=== PATIENT | female | born 1970 | race Caucasian/White ===

== ENCOUNTER → 2022-11-27 09:51 | Outpatient (BNVA) | payer OTHER, SELFPAY | PROVIDERS: PCP Nurse Practitioner Adult Health; Visit Provider Orthopaedic Surgery | DX: Z13.89 Encounter for screening for other disorder (principal) | CPT/HCPCS: J1100 ==

== ENCOUNTER → 2023-02-26 08:36 | Outpatient (BNVA) | payer OTHER, SELFPAY | PROVIDERS: PCP Nurse Practitioner Adult Health; Visit Provider Orthopaedic Surgery ==

== ENCOUNTER 2023-10-09 10:46 | Outpatient (AMB) | payer OTHER, SELFPAY ==
--- NOTE | 2023-10-09 10:57 | A.OFFVIS_ITS ---
Intake Intake Visit Reasons: New Prob - Right Elbow Intake Note: Radha is a 53 year old right hand dominant female who presents today for a new problem visit with complaints of right elbow pain. She has had ongoing right elbow pain for a few months now. She explains that her pain is felt at the tip of the elbow and has soreness of the forearm. She notes increased pain with brushing teeth and lifting. History of elbow tendonitis wiht cortisone injections but feel that this is different Allergies penicillin G Allergy (Mild, Verified 11/27/22 10:18) Unknown prednisone Allergy (Mild, Verified 11/27/22 10:18) tongue swells Sulfa (Sulfonamide Antibiotics) Allergy (Mild, Verified 11/27/22 10:18) Hives Medication List - Last Reconciled 10/09/23 by Shira Abdi PA-C albuterol sulfate 90 mcg/actuation (Ventolin HFA) 2 puffs inhalation Q6H PRN albuterol sulfate mg inhalation Q4H PRN beclomethasone dipropionate 80 mcg/actuation (QNASL) 2 sprays intranasal DAILY bupropion HCl 300 mg PO DAILY celecoxib (Celebrex) 200 mg PO BID 30 days cetirizine 10 mg PO BID epinephrine IM fluticasone furoate-vilanterol 100-25 mcg/dose (Breo Ellipta) 1 ea inhalation DAILY fluticasone furoate-vilanterol 200-25 mcg/dose (Breo Ellipta) ea inhalation DAILY lorazepam 0.5 - 1 mg PO BEDTIME PRN spironolactone 50 mg PO BID spironolactone 25 mg PO BID HPI New Prob - Right Elbow HPI Details 53-year-old right hand dominant female joão dejesus presents to the office today for evaluation of right elbow pain for about 4 months. She states she has pain at the tip of her elbow which is aggravated with brushing her teeth, lifting, taking her dog to walk and with certain motions. She also c/o soreness in her forearm and experiences difficulty with grabbing objects. She finds no relief with ice. She was seen by Dr. Broussard on 02/26/23 for left CTS. 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 No erythema or swelling. ROM full without pain. Tenderness over the medial epicondyle and pain with resisted wrist supination. NVI. Assessment & Plan Assessment & Plan (1) Right elbow tendonitis: Code(s): M77.8 - Other enthesopathies, not elsewhere classified Plan We discussed options which include PT, NSAIDs and injections. The patient will defer on formal therapy and injection today so she was given a handout of home exercises in the office today. I also sent a prescription of Celebrex to her pharmacy. If symptoms persist, the patient will contact me for an injection, otherwise, PRN. Medications: New celecoxib (Celebrex) 200 mg PO BID 60 caps 3RF 30 days Patient Instructions: Scribed for Shira Abdi PA-C, by yTler Lara medical technologist hematology, on 10/09/2023 at 11:00 AM EST. IShira PA-C, have personally reviewed and agree with the information entered by the scribe. Coding Level of Care Code Est Pt Level 3 (01473) Diagnoses Right elbow tendonitis M77.8
== END 2023-10-09 12:17 | disposition home or self-care (01) ==
PROVIDERS: PCP Nurse Practitioner Adult Health; Visit Provider Physician Assistant
DX: M77.8 Other enthesopathies, not elsewhere classified (principal)
CPT/HCPCS: 99214

== ENCOUNTER → 2023-10-09 10:46 | Outpatient (BNVA) | payer OTHER, SELFPAY | PROVIDERS: PCP Nurse Practitioner Adult Health; Visit Provider Physician Assistant ==

== ENCOUNTER 2024-04-26 09:51 | Outpatient (AMB) | payer OTHER, SELFPAY ==
[2024-04-26 09:57] VITALS: BP 140/86; PULSE 86; BMI 38.5
--- NOTE | 2024-04-26 09:57 | MHC.OFFVIS ---
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 Validation Manager Required: No Accompanied by: Self / Same As Patient Allergies penicillin G Allergy (Mild, Verified 11/27/22 10:18) Unknown prednisone Allergy (Mild, Verified 11/27/22 10:18) tongue swells Sulfa (Sulfonamide Antibiotics) Allergy (Mild, Verified 11/27/22 10:18) Hives Medication List - Last Reconciled 04/26/24 by Jin Lopez MD albuterol sulfate 90 mcg/actuation (Ventolin HFA) 2 puffs inhalation Q6H PRN albuterol sulfate mg inhalation Q4H PRN bupropion HCl XL 150 mg PO DAILY cetirizine 10 mg PO BID epinephrine IM fluticasone furoate-vilanterol 100-25 mcg/dose (Breo Ellipta) 1 ea inhalation DAILY fluticasone furoate-vilanterol 200-25 mcg/dose (Breo Ellipta) ea inhalation DAILY lorazepam 0.5 - 1 mg PO BEDTIME PRN spironolactone 50 mg PO BID spironolactone 25 mg PO BID HPI Comments Details: Radha was referred here for precordial chest pain. She is a 54 year female with multiple musculoskeletal issues, asthma, hyperaldosteronism on spironolactone therapy, borderline hypertension, obesity. Patient also has history of anxiety disorder. Patient is about 5 years ago she had developed severe precordial/retrosternal chest tightness/pressure which happen mostly at rest associated diaphoresis shortness of breath. She did not seek emergency care at that point time. Subsequently she has been having intermittent episodes these episodes mostly under stressful situations. More recently she ended up going to a local emergency room but had a very long wait but was probably told everything was normal. She then went home without being completely evaluated at that point time. Subsequently over the weekend she had similar symptoms again. She comes for consultation today for these symptoms. She is concerned about cardiovascular issues given her risk factors and wants further evaluation. She denies any clear exertional chest discomfort. Does have exertional shortness of breath. No prolonged palpitation irregular heartbeat. No orthopnea, PND, leg edema. 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 Review of Systems Const Denies chills, Denies fatigue, Denies fever(s), Denies frequent falls, Reports weakness, Denies weight gain and Denies weight loss ENT Reports dizziness Card Reports chest pain, Reports diaphoresis, Denies leg edema, Denies lightheadedness, Denies palpitations, Reports dyspnea and Reports dyspnea on exertion Resp Denies cough, Reports dyspnea and Reports dyspnea on exertion GI Denies hematochezia Musc Denies abnormal gait, Denies muscle weakness, Denies numbness, Denies radiating pain into limb and Denies tingling Neuro Denies abnormal gait, Reports dizziness, Denies frequent falls, Denies numbness, Denies tingling and Reports weakness Endo Denies fatigue and Denies palpitations Physical Exam Vital Signs: Last Vital Signs Pulse 86 04/26/24 09:57 BP 140/86 H 04/26/24 09:57 BMI result Body Mass Index 38.5 Const General: cooperative, comfortable, no acute distress, alert, awake and Physically active Nutritional Appearance: obese Orientation/consciousness: patient oriented x3 Limitations: no limitations HEENT Head: Yes normocephalic and Yes atraumatic Neck Neck: Yes trachea midline, Yes supple and Yes no JVD Resp Effort & Inspection: normal respiratory effort Auscultation: clear to auscultation bilaterally Cardio Jugular venous distension: no JVD Palpation: normal PMI Rate: regular rate Rhythm: regular rhythm Heart sounds: S1 normal heart sound present, S2 normal heart sound present, no click, no gallops, no murmurs and no rubs GI Auscultation: normal bowel sounds Skin General skin exam: no rashes or lesions noted Neuro General: patient oriented x3 and no focal motor deficits Extrem General: Yes no clubbing, cyanosis or edema Office Procedures EKG Details: EKG shows normal sinus rhythm with low-voltage QRS otherwise normal EKG. [id number], Complete Assessment & Plan Assessment & Plan (1) Atypical chest pain: Code(s): R07.89 - Other chest pain Category: Medical Plan: Atypical chest pain syndrome in this middle-aged woman with history of hypertension/hyperaldosteronism with borderline lipids. At current point in time her symptoms are atypical for myocardial ischemia although this needs to be ruled out. Will suggest a stress test given her baseline normal EKG. If this is within normal limits, can consider further evaluation for coronary atherosclerosis with coronary calcium score. Also suggest echocardiogram to evaluate for LV systolic and diastolic function to evaluate for hypertensive heart disease LVH that may explain her chest pain syndrome as well. If these are within normal limits consider evaluation from GI perspective. Continue aggressive blood pressure control which on today's exam appears to be elevated. Advised to monitor blood pressure at home maintain a log. May need uptitration of her spironolactone therapy and/or addition of an alternative antihypertensive agent. Further treatment of lipids based on the finding of coronary calcium score. She is encouraged to increase activity level and participate in weight loss program. This is a evaluation for sleep apnea. She is scheduled for colonoscopy in near future, if the cardiac testing is within normal limits, can pursue with colonoscopy with low risk for perioperative cardiovascular morbidity mortality. Will follow up in the clinic if need be. Thank you for allowing me to partake in his care. Orders: Orders CA stress test 04/27/24 R07.89 - Other chest pain Coding Level of Care Code New Pt Level 4 (42232) Diagnoses Atypical chest pain R07.89 CPT Codes EKG - CPT: 61769-[id number], Complete ([id number])
== END 2024-04-26 10:33 | disposition home or self-care (01) ==
PROVIDERS: PCP Nurse Practitioner Adult Health; Visit Provider Internal Medicine Cardiovascular Disease
DX: R07.89 Other chest pain (principal)
CPT/HCPCS: 93010; 93306; 99204

== ENCOUNTER → 2024-04-26 09:51 | Outpatient (BNVA) | payer OTHER, SELFPAY | PROVIDERS: PCP Nurse Practitioner Adult Health; Visit Provider Internal Medicine Cardiovascular Disease | DX: R07.89 Other chest pain (principal); I10 Essential (primary) hypertension; E26.9 Hyperaldosteronism, unspecified | CPT/HCPCS: 93005 ==

== ENCOUNTER → 2024-04-26 12:44 | Outpatient (REF) | payer OTHER, SELFPAY ==
--- NOTE | 2024-04-26 12:50 | CA_ITS ---
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 The calculated ejection fraction is 62% by biplane method. - No obvious valvular pathology seen on this study. Findings Procedure Information Contrast agent, definity, is being given per protocol without apparent complications. Left Ventricle Normal left ventricular cavity size. There is normal left ventricular wall thickness. The left ventricular systolic function is normal. The calculated ejection fraction is 62% by biplane method. There is no evidence of regional wall motion abnormalities. Diastolic function is normal for age. Right Ventricle Normal right ventricular cavity size and systolic function. Atria Both atria are normal in size. Aortic Valve There is a normal trileaflet aortic valve. There is no aortic valve stenosis. There is no aortic valve regurgitation. Mitral Valve The mitral valve appears normal. There is no mitral valve regurgitation. There is no mitral valve stenosis. Pulmonic Valve There is trace pulmonic valve regurgitation. Tricuspid Valve Normal tricuspid valve structure. There is no tricuspid valve regurgitation. Tricuspid regurgitation envelope is inadequate for calculation of right ventricular systolic pressure. Great Vessels The asc aorta is normal in size. Venous The inferior vena cava is normal in size and collapses greater than 50% with inspiration. Pericardium/Pleural There is no evidence of pericardial effusion. Prior Study Comparison No prior study available for comparison. Recommendations, Care & Conclusions No obvious valvular pathology seen on this study. Measurements 2D Linear Measurements IVSd: 1.00 0.6-0.9/0.6-1.0 cm LVIDd: 4.90 3.9-5.3/4.2-5.9 cm LVIDd Index: 2.44 2.4-3.2/2.2-3.1 cm/m2 LVIDs: 3.49 2.0-3.6 cm LVPWd: 0.92 0.7-1.1 cm LA Diam: 3.80 2.7-3.8/3.0-4.0 cm LAIDs Index: 1.89 1.5-2.3 cm/m2 LV Mass: 206.97 67-162/88-224 g LV Mass Index: 102.97 43-95/49-115 g/m2 LVOT Diam: 2.30 3.0+(-)1.3 cm 2D Systolic Function EF 4C: 69.30 >55% EF 2C: 53.70 >55% EF BiP: 61.60 >55% Mitral Valve MV Pk E: 0.77 MV PK A: 0.66 MV Decel Time: 188.00 E/A: 1.20 E'Lateral: 7.83 E'Medial: 7.29 E/E' Med: 10.60 E/E' Lat: 9.80 PHT: 55.00 MVA PHT: 4.00 Decel Kenedy: 4.11 Aortic Valve AoV Pk Irving: 1.32 AoV Pk Grad: 7.00 JENNIFER: 3.64 LVOT LVOT Pk Irving: 1.08 LVOT Mn Irving: 0.74 LVOT VTI: 0.20 LVOT Pk Grad: 5.00 LVOT Mn Grad: 3.00 LVOT Diam: 2.30 LVOT Area: 4.15 Diastolic Function MV Pk E: 0.77 MV Pk A: 0.66 E/A: 1.20 E'Medial: 7.29 E/E' Med: 10.60 E' Laterial: 7.83 E/E' Lat: 9.80 Right Ventricle TAPSE (mm): 29.10 TVS' Irving: 16.00 Tricuspid Valve RA Press: 3.00 Great Vessels Aorta Sinus of Valsalva: 2.90 2.0-3.5 cm Ao Asc: 3.20 2.1-3.4 cm Pulmonary Valve PV Pk Irving: 0.88 Peak PV Grad: 3.00 Updated in Other Vendor System with Status of Final Enrique Tomlinson MD electronically signed on 04/26/2024 2:22:11 PM with status of Final
== END ==
LOC: HO.CARD 12:44
PROVIDERS: PCP Nurse Practitioner Adult Health; Visit Provider Internal Medicine Cardiovascular Disease
DX: R07.89 Other chest pain (principal)
CPT/HCPCS: 93306; Q9957

== ENCOUNTER → 2024-04-27 09:51 | Outpatient (REF) | payer OTHER, SELFPAY ==
--- NOTE | 2024-04-27 09:54 | CA_ITS ---
Acquisition Time: 2024-04-27 10:25:22 Total Exercise Time: 00:06:15 Test Indications: CP Medications: SEE H Protocol: GRZEGORZ Max HR: 151 BPM 90% of Pred: 166 BPM Max BP: 170/080 mmHG Max Work Load: 7.3 METS Exercise stress test exercise 6 min 15 sec of Grzegorz protocol achieving 88% MPHR, with mild SOB, without jaw pain or chest discomforts, with isolated PVCs, with normotensive resposne to exercise, without EKG changes. Test reviewed with Dr. Slater. Referred By: Jin Lopez Overread By: Ijeoma Rascon
== END ==
LOC: HO.CARD 09:51
PROVIDERS: PCP Nurse Practitioner Adult Health; Visit Provider Internal Medicine Cardiovascular Disease
DX: R07.89 Other chest pain (principal)
CPT/HCPCS: 93017

== ENCOUNTER → 2024-04-27 09:54 | Outpatient (BNV) | payer OTHER, SELFPAY | PROVIDERS: PCP Nurse Practitioner Adult Health; Visit Provider Nurse Practitioner | DX: I49.3 Ventricular premature depolarization (principal) | CPT/HCPCS: 93016; 93018 ==

== ENCOUNTER 2024-05-03 09:19 | Day surgery (SDC) | payer OTHER, SELFPAY ==
[2024-04-29 14:25] VITALS: BMI 38.8
[2024-05-03 09:59] VITALS: BP 177/101; PULSE 90; RESP 18; TEMP 37.1; O2SAT 96; BMI 37.1
[2024-05-03 10:10] VITALS: BP 159/97
--- NOTE | 2024-05-03 10:11 | HO.ANESPROP2 ---
HPI - Anesthesia Eval Consult details Narrative: colon screen [facility] Active Problems Active Problems: All Active Problems (Updated 04/29/24 @ 14:44 by Vidhi Arellano RN) Atypical chest pain (Acute) Right elbow tendonitis (Acute) Carpal tunnel syndrome of left wrist (Acute) Carpal tunnel syndrome of right wrist (Acute) Trigger thumb, right thumb (Acute) Past Medical History Medical History Atypical chest pain GERD (gastroesophageal reflux disease) HTN (hypertension) Hyperaldosteronism Asthma Seasonal allergic reaction Family History Family History Mother Borderline high blood pressure Pacemaker History of high cholesterol Hx of cardiac cath Family history of problems with anesthesia: No Surgical History Surgical History Hx of cervical discectomy History of total abdominal hysterectomy Hx of cholecystectomy H/O colonoscopy H/O: hysterectomy H/O neck surgery History of Problems with Anesthesia: No Social History Social History Household Members: Spouse Are you a primary account executive healthcare to a significant other at home: No Do you presently have visiting nurse or other home services: No Alcohol intake: current Alcohol intake frequency: holidays/special occasions only Patient Tobacco Use Status: Never used Tobacco Use of substances other than those prescribed or required for medical reasons: No Are you DNR?: No Advance Directives: No Advance Directives Information Provided: Yes 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 Allergies Allergy/AdvReac Type Severity Reaction Status Date / Time penicillin G Allergy Mild Unknown Verified 05/03/24 09:47 prednisone Allergy Mild tongue Verified 05/03/24 09:47 swells Sulfa (Sulfonamide Allergy Mild Hives Verified 05/03/24 09:47 Antibiotics) Active Medications: Current Medications Lactated Ringer's (Lr) 1,000 mls @ 100 mls/hr IVCONT .Q10H BONNIE Sodium Biphosphate/Sodium Phosphate (Sodium Phosphate,Hamblen-Dibasic 133 Ml Enema) 133 ml NH ONCE PRN PRN Reason: Poor Colonoscopy Prep Results Home Medications ?Medication ?Instructions ?Recorded ?Confirmed ?Last Taken ?Type albuterol sulfate 2.5 mg/3 mL 2.5 mg inhalation Q4H PRN 11/27/22 04/29/24 Unknown History (0.083 %) solution for nebulization Shortness Of Breath albuterol sulfate 90 mcg/actuation 2 puff inhalation Q6H PRN dyspnea 11/27/22 04/29/24 Unknown History aerosol inhaler (Ventolin HFA) cetirizine 10 mg tablet 10 mg PO BID 11/27/22 04/29/24 Unknown History epinephrine 0.3 mg/0.3 mL 0.3 mg IM ONCE PRN Anaphylaxis 11/27/22 04/29/24 Unknown History injection, auto-injector fluticasone furoate 200 1 ea inhalation DAILY 11/27/22 04/29/24 Unknown History mcg-vilanterol 25 mcg/dose inhalation powder (Breo Ellipta) lorazepam 1 mg tablet 0.5 - 1 mg PO BEDTIME PRN Anxiety 11/27/22 04/29/24 Unknown History spironolactone 25 mg tablet 25 mg PO BID 11/27/22 04/29/24 Unknown History spironolactone 50 mg tablet 50 mg PO BID 11/27/22 04/29/24 Unknown History bupropion HCl 300 mg 24 hr tablet, 150 mg PO DAILY 04/26/24 04/29/24 Unknown History extended release omeprazole 20 mg capsule,delayed 20 mg 05/03/24 Unknown History release Exam Height,Weight and Vital Signs: Height 5 ft 4 in Weight 97.976 kg Last Vital Signs Temp 98.8 F 05/03/24 09:59 Pulse 90 05/03/24 09:59 Resp 18 05/03/24 09:59 BP 159/97 H 05/03/24 10:10 Pulse Ox 96 05/03/24 09:59 O2 Del Method Room Air 05/03/24 09:59 Airway Mallampati Class: II TM Dist: >3cm Heart: rrr Lungs: cta Assessment and Plan Assessment Anesthesia Assessment: Anesthesia Plan Discussed Final Anesthetic Review Family History of Problems with Anesthesia: No History of Problems with Anesthesia: No NPO: Yes ASA Class: III Final Preanesthetic Review: No Changes in Pt Med Stat, Meds/Allgs Chart Reviewed, Consent Obtained/Reviewed and Anes Risks/Benef Reviewed Patient Risk: Intermediate Procedure Risk: Low Anesthetic Plan Anesthetic Plan: MAC: Disposition: Standard PACU
[2024-05-03] MEDS: Lactated Ringers 1,000 ML 100 ML IVCONT (10:19)
[2024-05-03 11:48] VITALS: BP 117/78; PULSE 104; RESP 12; TEMP 36.6; O2SAT 98
--- NOTE | 2024-05-03 11:51 | P.BOP_ITS ---
Brief Operative Note Date of Service: 05/03/24 Pre-op diagnosis: GERD, Screening Post-op diagnosis: other (Hiatal hernia, Polyps) Procedure: EGD with biopsies, Colonoscopy to the cecum and TI with cold snare polypectomy x 1 at 30cm, and bx/removal of polyps Surgeon: Elieser Lacy MD Anesthesia: MAC Was an Braider Setter used for this Procedure?: No Estimated blood loss (mL): 2.0 Pathology: other (A. EG Junction at 36cm B. Polyp at 20cm C. Cecal polyp D. Polyp at 30cm) Condition: stable Disposition: PACU
[2024-05-03 12:03] VITALS: BP 148/88; PULSE 97; RESP 18; TEMP 36.8; O2SAT 100
[2024-05-03 12:18] VITALS: BP 148/86; PULSE 93; RESP 18; TEMP 36.9; O2SAT 98
--- NOTE | 2024-05-03 12:22 | OP_ITS ---
DATE OF SERVICE: 05/03/2024 SURGEON: Elieser Lacy MD INDICATIONS: The patient presents for followup of personal history of colon polyps and chronic gastroesophageal reflux. Full consent has been obtained from her for both procedures, including risks of bleeding and perforation. PREOPERATIVE DIAGNOSIS: POSTOPERATIVE DIAGNOSIS: PROCEDURE PERFORMED: Esophagogastroduodenoscopy with biopsies, and colonoscopy to the cecum and terminal ileum with biopsy and removal of polyps, and cold snare polypectomy. ESTIMATED BLOOD LOSS: COMPLICATIONS: ANESTHESIA: Monitored anesthesia care. ASSISTANTS: SPECIMENS: PREOPERATIVE DIAGNOSES: Gastroesophageal reflux, colorectal cancer screening, personal history of colon polyps. POSTOPERATIVE DIAGNOSES: Gastroesophageal reflux, colorectal cancer screening, personal history of colon polyps, hiatal hernia, rule out Magallanes's esophagus, colon polyps, diverticulosis, and internal hemorrhoids. DESCRIPTION OF PROCEDURE: The patient was placed in the left lateral decubitus position. The Olympus video gastroscope was passed in the posterior oropharynx and upper esophagus under direct vision. The scope was passed slowly to the distal esophagus. The gastroesophageal junction appeared at 36 cm. There was some slight irregularity consistent with reflux, but no definitive evidence of Magallanes's mucosa. There was no evidence of esophagitis. The scope entered the stomach. There was a small hiatal hernia. The scope was advanced to pylorus and the duodenum was cannulated to the descending portion. The duodenum including the bulb appeared normal without mass or ulceration. The scope was withdrawn back to the stomach. The gastric antrum and body appeared normal with good peristalsis. The scope was retroflexed, visualizing the proximal stomach carefully, which appeared normal, without any sign of mass or ulceration. The scope was straightened and withdrawn back to the esophagus. Biopsies were obtained at the EG junction at 36 cm. Proximal to that, the esophageal mucosa appeared normal. The scope was withdrawn from the patient. She was turned around for the colonoscopy. The digital rectal exam revealed no abnormalities. The Olympus video pediatric colonoscope was then entered into the rectum and advanced easily to the cecum. Once in the cecum, I did identify cecal pouch with appendiceal orifice and a normal-appearing ileocecal valve. The terminal ileum was cannulated and appeared normal. The scope was withdrawn back in the colon. The entire cecum and ileocecal valve appeared normal other than an approximately 3 or 4 mm polyp, which was biopsied and completely removed with the cold biopsy forceps. The scope was then slowly withdrawn assessing all mucosal surfaces carefully. Preparation was excellent. At 30 cm, was an approximately 5 or 6 mm flat, but raised either hyperplastic or serrated polyp, which was removed by cold snare polypectomy completely. The polypectomy site appeared clean, without any sign of residual polyp nor any significant bleeding. At 20 cm, was an approximately 3 mm polyp, which was biopsied and completely removed with the cold biopsy forceps. I did not visualize any other polyps, colitis, nor angiodysplasias. There was a mild amount of sigmoid diverticulosis. In the rectum, scope was retroflexed, visualizing internal hemorrhoids, but no other pathology. The rectal mucosa appeared normal. The scope was straightened and withdrawn from the patient. She tolerated both procedures well and was returned to the recovery area in stable condition. IMPRESSION: 1. Hiatal hernia, gastroesophageal reflux, rule out Magallanes's esophagus. 2. Colon polyps. 3. Diverticulosis. 4. Internal hemorrhoids. PLAN: The results of the pathology will be checked. If the upper endoscopy biopsies do show Magallanes's esophagus, I would recommend a repeat upper endoscopy in 3 years for further screening and surveillance. I would recommend a repeat colonoscopy in 5 years for further screening as well. She was advised not to use any aspirin and NSAIDs for 1 week. She can continue to use omeprazole or H2-blockers for relief of her reflux either as needed or daily. This has been discussed with her .. MD JAH Doshi/SHIN / [id number] MTDBarbara
== END 2024-05-03 12:48 | disposition home or self-care (01) ==
PROVIDERS: PCP Nurse Practitioner Adult Health; Visit Provider Internal Medicine
PROC: 0DJD8ZZ Inspection of Lower Intestinal Tract, Via Natural or Artificial Opening Endoscopic (ICD-10-PCS; CPT 45378; principal; 2024-05-03 10:30)
DX: Z12.11 Encounter for screening for malignant neoplasm of colon (principal); Z86.010 Personal history of colon polyps; D12.0 Benign neoplasm of cecum; K63.5 Polyp of colon; K57.30 Diverticulosis of large intestine without perforation or abscess without bleeding; K64.8 Other hemorrhoids; K21.9 Gastro-esophageal reflux disease without esophagitis; K44.9 Diaphragmatic hernia without obstruction or gangrene; I10 Essential (primary) hypertension; E26.9 Hyperaldosteronism, unspecified; J45.909 Unspecified asthma, uncomplicated; Z79.51 Long term (current) use of inhaled steroids; Z79.899 Other long term (current) drug therapy; Z98.890 Other specified postprocedural states
CPT/HCPCS: 45385; 45380; 43239; 88305; 88313; J1596; J2250; J2704